=== PATIENT | male | born 1960 | race American Indian/Alaskan Native ===

== ENCOUNTER 2016-10-06 03:33 | Emergency (ER) | payer MEDICARE ==
[2016-10-06 10:46] LABS: ISTAT Base Excess -4; ISTAT HCO3 22.1; ISTAT PCO2 42.3 (35-45); ISTAT PH 7.326 (7.35-7.45); ISTAT PO2 67 (80-105); ISTAT SO2 92; ISTAT TCO2 23
[2016-10-06] MEDS ORDERED: ZESTRIL ONE (10:49)
[2016-10-06] MEDS ORDERED: BABY ASPIRIN ONE (11:34)
[2016-10-06] MEDS ORDERED: COREG ONE (12:05)
[2016-10-06] MEDS ORDERED: HEPARIN ONE (12:11)
[2016-10-06 13:51] VITALS: BP 134/85
--- NOTE | 2016-10-06 16:24 | XRay Report ---
AP CHEST: AP view of the chest demonstrates a normal mediastinal and cardiac contour with clear lungs and normal bony and soft tissue structures. IMPRESSION: Normal AP chest.
--- NOTE | 2016-10-06 19:55 | History and Physical Report ---
History of Present Illness Date of examination: 10/06/16 Date of admission: 10/06/16 Chief complaint: shortness of breath History of present illness: patient is a 56 year old male with past medical hx of CAD, CHF EF unknown, copd , Dm, htn, hyperlipidemia, PUD, who presented to the ER with complaints of shortness of breath, the patient states he was recently discharged from the [facility] where he was treated for COPD exacerbation and given steriods and antibiotics. He states that he did not fill the prescriptions for the steriods and begain have shortness of breath for the past 2 days and has progressively gotten worse with associated none productive cough. He denies any chest pain, nausea or vomiting. He denies any fever. He continues to smoke. He denies home oxygen use. He is accompanied by his . Medications: LISINOPRIL, ASPIRIN, COREG, PREDNISONE, METFORMIN, ALBUTEROL Past History Past Medical History: acute SD, CAD, COPD, diabetes, hypertension, hyperlipidemia, other (ulcer) Past Surgical History: No surgical history Social history: smoking, full code. denies: alcohol abuse, prescription drug abuse Family history: no significant family history Medications and Allergies Allergies Allergy/AdvReac Type Severity Reaction Status Date / Time No Known Allergies Allergy Unverified 10/06/16 04:02 Review of Systems Constitutional: no weight loss, no weight gain, no fever, no chills, no sweats Ears, nose, mouth and throat: no decreased hearing, no epistaxis, no mouth pain , no swelling in mouth Cardiovascular: edema, dyspnea on exertion, high blood pressure, no chest pain, no orthopnea, no palpitations, no syncope Respiratory: cough, shortness of breath, dyspnea on exertion, congestion, wheezing, no respiratory infections, no home oxygen Gastrointestinal: no abdominal pain, no nausea, no vomiting Genitourinary Male: no dysuria, no hematuria Musculoskeletal: no neck stiffness, no neck pain, no shooting arm pain, no arm numbness/tingling, no shooting leg pain, no leg numbness/tingling Integumentary: no deferred, no pruritis, no redness, no sores, no lesions Neurological: no paralysis, no weakness, no parathesias, no numbness, no change in mentation Psychiatric: no anxiety, no memory loss, no change in sleep habits, no sleep disturbances Endocrine: no cold intolerance, no heat intolerance, no polyphagia Hematologic/Lymphatic: no easy bruising Allergic/Immunologic: no urticaria Exam - Constitutional Vitals: Temp Pulse Resp BP Pulse Ox 97.8 F 102 H 19 134/85 93 10/06/16 03:56 10/06/16 13:41 10/06/16 13:41 10/06/16 13:41 10/06/16 13:41 General appearance: Present: mild distress, well-nourished - EENT Eyes: Present: PERRL, EOM intact ENT: hearing intact, other (missing dentition) - Neck Neck: Present: supple, normal ROM - Respiratory Respiratory: bilateral: wheezing - Cardiovascular Rhythm: regular Heart Sounds: Present: S1 & S2. Absent: systolic murmur, diastolic murmur - Extremities Extremities: no ischemia Extremity abnormal: pulses diminished (lower ext. DP, PD 1+) - Abdominal General gastrointestinal: Present: soft, non-tender, non-distended, normal bowel sounds Male genitourinary: Present: deferred - Rectal Rectal Exam: deferred - Integumentary Integumentary: Present: clear, dry - Musculoskeletal Musculoskeletal: strength equal bilaterally - Psychiatric Psychiatric: appropriate mood/affect, cooperative - Neurologic Neurologic: CNII-XII intact, moves all extremities - Allied Health Allied health notes reviewed: nursing Results - Labs Labs: Laboratory Last Values POC ABG pH 7.326 (7.35-7.45) L 10/06/16 05:21 POC ABG pCO2 42.3 (35-45) 10/06/16 05:21 POC ABG pO2 67 (80-105) L 10/06/16 05:21 POC ABG HCO3 22.1 10/06/16 05:21 POC ABG Total CO2 23 10/06/16 05:21 POC ABG O2 Sat 92 10/06/16 05:21 POC ABG Base Excess -4 10/06/16 05:21 FiO2 28 % 10/06/16 05:21 POC Glucose 191 (70-105) H 10/06/16 10:40 Assessment and Plan Assessment and plan: patient is a 56 year old male with past medical hx of CAD, CHF EF unknown, copd , Dm, htn, hyperlipidemia, PUD, who presented to the ER with complaints of shortness of breath, the patient states he was recently discharged from the [facility] where he was treated for COPD exacerbation and given steriods and antibiotics. He states that he did not fill the prescriptions for the steroids and begain have shortness of breath for the past 2 days and has progressively gotten worse with associated none productive cough. He denies any chest pain, nausea or vomiting. He denies any fever. He continues to smoke. He denies home oxygen use. He is accompanied by his * Acute Respiratory failure with hypoxia * COPD Exacerbation * DM * HTN * Hyperlipidemia * PUD * CHF Presumed diastolic Plan * Admit to telemetry * IV corticosteriods q8hrs * Duonebs * Resume home meds * Accucheck ACHS * DVT/GI Propylaxis Advance Directives: Yes Plan of care discussed with patient/family: Yes
--- NOTE | 2016-10-06 20:41 | Event Note ---
Date: 10/06/16 I was called and informed by nursing staff that the patient left against medical advise. He complained in the delay in sending him to a floor since he was admitted. He was still getting all needed treatment in the ER
[2016-10-07] MEDS ORDERED: PEPCID PO SCH (10:00)
== END 2016-10-06 14:15 | disposition left against medical advice (07) ==
LOC: ED 03:33
DX: R06.00 Dyspnea, unspecified (principal); M19.90 Unspecified osteoarthritis, unspecified site; I50.9 Heart failure, unspecified; J44.9 Chronic obstructive pulmonary disease, unspecified; E11.9 Type 2 diabetes mellitus without complications; I10 Essential (primary) hypertension; Z72.0 Tobacco use; Z53.21 Procedure and treatment not carried out due to patient leaving prior to being seen by health care provider
CPT/HCPCS: 71010; 82803; 82962; A9270; J1644; J2920

== ENCOUNTER 2017-09-21 06:33 | Emergency (ER) | payer SELFPAY ==
--- NOTE | 2017-09-21 08:01 | XRay Report ---
FINAL REPORT PROCEDURE: XR CHEST 1V AP TECHNIQUE: Chest radiograph anteroposterior view. CPT 09514 HISTORY: Shortness of breath COMPARISON: None FINDINGS: Heart: Normal. Mediastinum/Vessels: Normal. Lungs/Pleural space: Normal. Bony thorax: No acute osseous abnormality. Life support devices: None. IMPRESSION: No radiographically evident acute cardiopulmonary disease.
[2017-09-21 08:02] LABS: Basophils % (Auto) 0.4 % (0.0-1.8); Eosinophils % (Auto) 0.3 % (0.0-4.3); Hematocrit 44.4 % (35.5-45.6); Hemoglobin 14.9 gm/dl (11.8-15.2); Lymphocytes # (Auto) 0.9 K/mm3 (1.2-5.4); Lymphocytes % (Auto) 8.2 % (13.4-35.0); Mean Corpuscular HGB Conc 34 % (32-34); Mean Corpuscular Hemoglobin 33 pg (28-32); Mean Corpuscular Volume 97 fl (84-94); Monocytes # (Auto) 0.9 K/mm3 (0.0-0.8); Monocytes % (Auto) 8.6 % (0.0-7.3); Platelet Count 221 K/mm3 (140-440); Red Blood Count 4.58 M/mm3 (3.65-5.03); Red Cell Distribution Width 14.7 % (13.2-15.2)
[2017-09-21 08:25] LABS: BUN/Creatinine Ratio 33; Blood Urea Nitrogen 23 mg/dL (9-20); Calcium 9.2 mg/dL (8.4-10.2); Hemolysis Index 9
[2017-09-21] MEDS ORDERED: MAGNESIUM SULFATE 2GM/50ML 2 GM/50 ML BAG IV ONE (09:19)
[2017-09-21] MEDS ORDERED: ROBITUSSIN PO ONE (09:19)
[2017-09-21] MEDS ORDERED: PROVENTIL IH ONE ×2 (09:19→10:50)
[2017-09-21] MEDS ORDERED: ATROVENT IH ONE ×2 (09:19→10:50)
--- NOTE | 2017-09-21 09:33 | Emergency Department Report ---
HPI - General Chief Complaint: Dyspnea/Respdistress Time Seen by Provider: 09/21/17 09:10 - HPI HPI: Room 6 The patient is a 57-year-old male presenting with a chief complaint of shortness of breath and congestion. The patient states last week he was diagnosed with influenza and was hospitalized at the [facility]. The patient states he was discharged 09/16/2017. The patient states following day began developing shortness of breath and chest congestion which has been worsening. Patient was a subjective fever. Patient denies pain of any type. Patient denies nausea/ vomiting. The patient states he tried his nebulizer at home but it did not help. Subsequently EMS was called and the patient was transported to the ED. Patient currently only complains of shortness of breath Location: Lungs Duration: 4 days Quality: Shortness Of breath Severity: Moderate Modifying factors: [see above] Context: [see above] Mode of transportation: [not driving] ED Past Medical Hx - Past Medical History Previous Medical History?: Yes Hx Hypertension: Yes Hx Heart Attack/AMI: Yes Hx Congestive Heart Failure: Yes Hx Diabetes: Yes Hx Arthritis: Yes Hx Asthma: Yes Hx COPD: Yes (2 L home O2) Additional medical history: Stomach ulcer - Surgical History Past Surgical History?: Yes Hx Coronary Stent: Yes (2 stents) Additional Surgical History: cardiac stents - Family History Family history: no significant - Social History Smoking Status: Former Smoker (none 5 months) Substance Use Type: None (denies illicit drug use) - Medications Home Medications: Home Medications Medication Instructions Recorded Confirmed Last Taken Type Furosemide [Lasix TAB] 80 mg PO QDAY 03/30/17 06/24/17 06/22/17 History Aspirin [Adult Low Dose Aspirin EC] 81 mg PO QDAY #30 tablet. 04/02/1706/22/17 Rx AtorvaSTATin [Lipitor] 80 mg PO QDAY #30 tablet 04/02/17 06/24/17 06/22/17 Rx Carvedilol [Coreg] 25 mg PO QDAY #30 tablet 04/02/17 06/24/17 06/22/17 Rx Ipratropium/Albuterol Sulfate 1 ampul IH QIDRT #30 ampul.neb 04/02/17 06/24/17 06/22/17 Rx [DUONEB *Not for PRN Use*] Lisinopril [Zestril TAB] 20 mg PO QDAY #30 tablet 04/02/17 06/24/17 06/22/17 Rx ALBUTEROL Inhaler [ProAir HFA 2 puff IH Q6H PRN #1 pump 05/11/17 06/24/17 Rx Inhaler] metFORMIN [Glucophage] 1,000 mg PO BID #60 tablet 05/11/17 06/24/17 06/22/17 Rx Levofloxacin [Levaquin TAB] 500 mg PO QDAY #5 tablet 06/26/17 Unknown Rx Prednisone [predniSONE 5 mg (6-Day 5 mg PO .TAPER #1 tab.ds.pk 06/26/17 Unknown Rx Pack, 21 Tabs)] glipiZIDE [Glipizide] 5 mg PO DAILY #30 tablet 06/26/17 Unknown Rx Prednisone [predniSONE 10 mg 10 mg PO .TAPER #1 tab.ds.pk 09/21/17 Unknown Rx (6-Day Pack, 21 Tabs)] guaiFENesin [Guaifenesin] 200 mg PO Q4H PRN #200 ml 09/21/17 Unknown Rx ED Review of Systems ROS: Stated complaint: KATHLEEN Other details as noted in HPI Constitutional: fever (subjective) Eyes: denies: eye pain ENT: congestion. denies: throat pain Respiratory: cough, shortness of breath, wheezing Cardiovascular: denies: chest pain Gastrointestinal: denies: abdominal pain Genitourinary: denies: dysuria Musculoskeletal: denies: back pain Neurological: denies: headache Physical Exam - Physical Exam Vital Signs: Vital Signs 09/21/17 09/21/17 09/21/17 07:12 07:18 07:30 Pulse Rate 90 101 H Respiratory 18 17 Rate Blood Pressure 114/76 114/76 112/70 O2 Sat by Pulse 96 Oximetry 09/21/17 09/21/17 09/21/17 07:46 07:57 08:00 Pulse Rate 88 89 Respiratory 17 17 Rate Blood Pressure 114/76 104/73 O2 Sat by Pulse 94 96 97 Oximetry Physical Exam: GENERAL: The patient is well-developed well-nourished male lying on stretcher not appearing to be in acute distress. [] HEENT: Normocephalic. Atraumatic. Extraocular motions are intact. Patient has moist mucous membranes. NECK: Supple. Trachea midline CHEST/LUNGS: Faint expiratory wheezes. There is no respiratory distress noted. HEART/CARDIOVASCULAR: Regular. There is no tachycardia. There is no gallop rub or murmur. ABDOMEN: Abdomen is soft, nontender. Patient has normal bowel sounds. There is no abdominal distention. SKIN: There is no rash. There is no edema. There is no diaphoresis. NEURO: The patient is awake, alert, and oriented. The patient is cooperative. The patient has normal speech MUSCULOSKELETAL: There is no evidence of acute injury. ED Course Vital Signs 09/21/17 09/21/17 09/21/17 07:12 07:18 07:30 Pulse Rate 90 101 H Respiratory 18 17 Rate Blood Pressure 114/76 114/76 112/70 O2 Sat by Pulse 96 Oximetry 09/21/17 09/21/17 09/21/17 07:46 07:57 08:00 Pulse Rate 88 89 Respiratory 17 18 17 Rate Blood Pressure 114/76 104/73 O2 Sat by Pulse 94 96 97 Oximetry - Reevaluation(s) Reevaluation #1: 09/21/17 12:04 Patient states he feels improved ED Medical Decision Making - Lab Data Result diagrams: 09/21/17 07:00 09/21/17 07:00 Laboratory Tests 09/21/17 09/21/17 07:00 07:00 WBC 10.8 RBC 4.58 Hgb 14.9 Hct 44.4 MCV 97 H MCH 33 H MCHC 34 RDW 14.7 Plt Count 221 Lymph % (Auto) 8.2 L Levy % (Auto) 8.6 H Eos % (Auto) 0.3 Baso % (Auto) 0.4 Lymph # 0.9 L Levy # 0.9 H Eos # 0.0 Baso # 0.0 Seg Neutrophils % 82.5 H Seg Neutrophils # 8.9 H Sodium 140 Potassium 3.8 Chloride 95.2 L Carbon Dioxide 29 Anion Gap 20 BUN 23 H Creatinine 0.7 L Estimated GFR > 60 BUN/Creatinine Ratio 33 Glucose 145 H Calcium 9.2 - EKG Data -: EKG Interpreted by Vt EKG shows normal: sinus rhythm Rate: normal - EKG Data When compared to previous EKG there are: changes noted Interpretation: nonspecific ST-T wave jana (diffuse T-wave inversions (new T- wave inversions in leads 2, 3, aVF)) - Radiology Data Radiology results: image reviewed (chest x-ray) interpreted by me: Chest x-ray-no focal infiltrates, no pneumothorax - Differential Diagnosis influenza, COPD exacerbation Critical care attestation.: If time is entered above; I have spent that time in minutes in the direct care of this critically ill patient, excluding procedure time. ED Disposition Clinical Impression: COPD exacerbation Disposition: DC-01 TO HOME OR SELFCARE Is pt being admited?: No Does the pt Need Aspirin: No Condition: Stable Instructions: Chronic Bronchitis (ED) Additional Instructions: Return to the emergency department immediately should you develop worsening symptoms, fever, inability to tolerate food or liquid or any other concerns. Prescriptions: guaiFENesin [Guaifenesin] 200 mg PO Q4H PRN #200 ml PRN Reason: Cough Prednisone [predniSONE 10 mg (6-Day Pack, 21 Tabs)] 10 mg PO .TAPER #1 tab.ds.pk Referrals: [facility] [Outside] - 3-5 Days Time of Disposition: 12:07
[2017-09-21 13:01] VITALS: BP 111/78
== END 2017-09-21 13:01 | disposition home or self-care (01) ==
LOC: ED 06:33
DX: J44.1 Chronic obstructive pulmonary disease with (acute) exacerbation (principal); I10 Essential (primary) hypertension; I11.0 Hypertensive heart disease with heart failure; I50.9 Heart failure, unspecified; I25.2 Old myocardial infarction; E11.9 Type 2 diabetes mellitus without complications; M19.90 Unspecified osteoarthritis, unspecified site; Z87.891 Personal history of nicotine dependence; Z95.1 Presence of aortocoronary bypass graft; Z79.82 Long term (current) use of aspirin
CPT/HCPCS: 36415; 71045; 80048; 85025; 93005; 93010; 94644; 96365; 96375; 99284; J2930; J3475

== ENCOUNTER 2017-09-23 12:39 | Emergency (ER) | payer SELFPAY ==
[2017-09-23 13:57] VITALS: BP 108/63
--- NOTE | 2017-09-23 14:47 | XRay Report ---
CHEST 2 VIEWS INDICATION: Shortness of breath. COMPARISON: 09/21/2017 FINDINGS: PA and lateral chest radiographs demonstrate normal cardiomediastinal silhouette. Mildly hyperexpanded lungs, again with slightly lucent upper lobes and somewhat crowded markings toward the bases. No pleural effusions or CHF. Intact bones. CONCLUSION: COPD without acute chest process. Please correlate. Thank you for the opportunity to participate in this patient's care.
[2017-09-23 15:39] LABS: Hematocrit 48.7 % (35.5-45.6); Hemoglobin 15.7 gm/dl (11.8-15.2); Mean Corpuscular HGB Conc 32 % (32-34); Mean Corpuscular Hemoglobin 32 pg (28-32); Mean Corpuscular Volume 98 fl (84-94); Platelet Count 330 K/mm3 (140-440); Red Blood Count 4.96 M/mm3 (3.65-5.03)
[2017-09-23 15:58] LABS: BUN/Creatinine Ratio 23; Blood Urea Nitrogen 16 mg/dL (9-20); Calcium 9.8 mg/dL (8.4-10.2); Hemolysis Index 11
[2017-09-23 16:10] LABS: Basophils % (Manual) 0 % (0.0-1.8); Eosinophils % (Manual) 0 % (0.0-4.3); Total Cells Counted 100
[2017-09-23 16:11] LABS: Anisocytosis Few
== END 2017-09-24 04:00 | disposition left against medical advice (07) ==
LOC: ED 12:39
DX: Z53.21 Procedure and treatment not carried out due to patient leaving prior to being seen by health care provider (principal)
CPT/HCPCS: 36415; 71046; 80048; 85007; 85025; 93005; 93010

== ENCOUNTER 2018-03-10 16:10 | Emergency (ER) | payer MEDICARE ==
[2018-03-10] MEDS ORDERED: ATROVENT IH ONE ×2 (16:54→19:22)
[2018-03-10] MEDS ORDERED: PROVENTIL IH ONE ×2 (16:54→19:22)
--- NOTE | 2018-03-10 17:01 | Emergency Department Report ---
HPI - General Time Seen by Provider: 03/10/18 16:49 - HPI HPI: Room 18 The patient is a 57-year-old male presenting with a chief complaint of shortness of breath. The patient states he began developing chest congestion 6 days ago and 5 days ago began developing shortness of breath and wheezing. The patient states the shortness of breath has been worsening since its onset. Patient admits to cough is occasionally productive of clear or light green sputum. Patient missed subjective fever. The patient states his MDI and nebulizer did not help at home. EMS was eventually called and administered nebulizers, Solu-Medrol and magnesium en route and the patient states he is feeling improved. Location: Lungs Duration: 6 days Quality: Shortness of breath Severity: Moderate Modifying factors: [see above] Context: [see above] Mode of transportation: [not driving] ED Past Medical Hx - Past Medical History Hx Hypertension: Yes Hx Heart Attack/AMI: Yes Hx Congestive Heart Failure: Yes Hx Diabetes: Yes Hx Arthritis: Yes Hx Asthma: Yes Hx COPD: Yes (2 L home O2) Additional medical history: Stomach ulcer - Surgical History Hx Coronary Stent: Yes (2 stents) Additional Surgical History: cardiac stents - Family History Family history: no significant - Social History Smoking Status: Former Smoker (none 7 months) Substance Use Type: None (denies illicit drug use) - Medications Home Medications: Home Medications Medication Instructions Recorded Confirmed Last Taken Type Furosemide [Lasix TAB] 80 mg PO QDAY 03/30/17 06/24/17 06/22/17 History Aspirin [Adult Low Dose Aspirin EC] 81 mg PO QDAY #30 tablet. 04/02/1706/22/17 Rx AtorvaSTATin [Lipitor] 80 mg PO QDAY #30 tablet 04/02/17 06/24/17 06/22/17 Rx Carvedilol [Coreg] 25 mg PO QDAY #30 tablet 04/02/17 06/24/17 06/22/17 Rx Ipratropium/Albuterol Sulfate 1 ampul IH QIDRT #30 ampul.neb 04/02/17 06/24/17 06/22/17 Rx [DUONEB *Not for PRN Use*] Lisinopril [Zestril TAB] 20 mg PO QDAY #30 tablet 04/02/17 06/24/17 06/22/17 Rx ALBUTEROL Inhaler [ProAir HFA 2 puff IH Q6H PRN #1 pump 05/11/17 06/24/17 Rx Inhaler] metFORMIN [Glucophage] 1,000 mg PO BID #60 tablet 05/11/17 06/24/17 06/22/17 Rx Levofloxacin [Levaquin TAB] 500 mg PO QDAY #5 tablet 06/26/17 Unknown Rx Prednisone [predniSONE 5 mg (6-Day 5 mg PO .TAPER #1 tab.ds.pk 06/26/17 Unknown Rx Pack, 21 Tabs)] glipiZIDE [Glipizide] 5 mg PO DAILY #30 tablet 06/26/17 Unknown Rx Prednisone [predniSONE 10 mg 10 mg PO .TAPER #1 tab.ds.pk 09/21/17 Unknown Rx (6-Day Pack, 21 Tabs)] guaiFENesin [Guaifenesin] 200 mg PO Q4H PRN #200 ml 09/21/17 Unknown Rx ALBUTEROL Inhaler [Proair] 2 puff IH QID PRN #1 inhalation 03/10/18 Unknown Rx Prednisone [predniSONE 10 mg 10 mg PO .TAPER #1 tab.ds.pk 03/10/18 Unknown Rx (6-Day Pack, 21 Tabs)] guaiFENesin [Tussin Mucus-Chest 200 mg PO TID PRN #200 ml 03/10/18 Unknown Rx Congestion] ED Review of Systems ROS: Stated complaint: KATHLEEN Other details as noted in HPI Constitutional: fever (subjective) Eyes: denies: eye pain ENT: denies: throat pain Respiratory: shortness of breath Cardiovascular: denies: chest pain Endocrine: denies: unexplained weight gain Gastrointestinal: denies: abdominal pain Genitourinary: denies: dysuria Musculoskeletal: denies: back pain Neurological: denies: headache Physical Exam - Physical Exam Vital Signs: Vital Signs 03/10/18 16:47 Temperature 98.6 F Pulse Rate 77 Respiratory 21 Rate Blood Pressure 147/84 [Left] O2 Sat by Pulse 100 Oximetry Physical Exam: GENERAL: The patient is well-developed well-nourished male lying on stretcher not appearing to be in acute distress. [] HEENT: Normocephalic. Atraumatic. Extraocular motions are intact. Patient has moist mucous membranes. NECK: Supple. Trachea midline CHEST/LUNGS: Clear to auscultation. There is no respiratory distress noted. HEART/CARDIOVASCULAR: Regular. There is no tachycardia. There is no gallop rub or murmur. ABDOMEN: Abdomen is soft, nontender. Patient has normal bowel sounds. There is no abdominal distention. SKIN: There is no rash. There is no edema. There is no diaphoresis. NEURO: The patient is awake, alert, and oriented. The patient is cooperative. The patient has normal speech MUSCULOSKELETAL: There is no evidence of acute injury. ED Course Vital Signs 03/10/18 16:47 Temperature 98.6 F Pulse Rate 77 Respiratory 21 Rate Blood Pressure 147/84 [Left] O2 Sat by Pulse 100 Oximetry - Reevaluation(s) Reevaluation #1: 03/10/18 18:49 Patient receiving nebulizer. Reevaluation #2: 03/10/18 19:23 Patient states she is feeling improved but still wheezing. Faint wheezing on auscultation bilaterally. Will give her another neb Reevaluation #3: 03/10/18 20:07 Patient states he is feeling much better. Will reassess after nebulizer is complete Reevaluation #4: 03/10/18 20:47 Patient states he feels much improved and is ready to go home ED Medical Decision Making - EKG Data -: EKG Interpreted by Me EKG shows normal: sinus rhythm Rate: normal - EKG Data When compared to previous EKG there are: previous EKG unavailable Interpretation: other (no ischemic changes seen) - Radiology Data Radiology results: report reviewed (chest x-ray), image reviewed (chest x-ray) interpreted by me: Chest x-ray-no focal infiltrates, no pneumothorax [address] [address] XRay Report Signed Patient: WILL SKELTON MR#: [id number] : 1960 Acct:[id number] Age/Sex: 57 / M ADM Date: 03/10/18 Loc: ED Attending Dr: Ordering Physician: OG VASQUEZ MD Date of Service: 03/10/18 Procedure(s): XR chest 1V ap Accession Number(s): [id number] cc: OG VASQUEZ MD Fluoro Time In Minutes: FINAL REPORT EXAM: XR CHEST 1V AP HISTORY: shortness of breath, productive cough TECHNIQUE: Frontal portable examination of the chest PRIORS: FINDINGS: Atherosclerotic change is present in the thoracic aorta. There is degenerative spondylosis of the thoracic spine. There is no visible pulmonary consolidation, pleural effusion, or pneumothorax. Cardiac silhouette size is normal without vascular congestion. Large lung volumes suggest hyperinflation. This may reflect pulmonary emphysema. IMPRESSION: Large lung volumes may reflect pulmonary emphysema and/or asthma Transcribed By: BAL Dictated By: DOMINICK VALENTINE MD Electronically Authenticated By: DOMINICK VALENTINE MD Signed Date/Time: 03/10/181833 DD/ 33 TD/TT: 03/10/181833 - Differential Diagnosis COPD exacerbation, CHF exacerbation Critical care attestation.: If time is entered above; I have spent that time in minutes in the direct care of this critically ill patient, excluding procedure time. ED Disposition Clinical Impression: COPD exacerbation, Shortness of breath Disposition: - TO HOME OR SELFCARE Is pt being admited?: No Does the pt Need Aspirin: No Condition: Stable Instructions: Chronic Obstructive Pulmonary Disease (ED) Additional Instructions: Return to the emergency department immediately should you develop worsening symptoms, fever, inability to tolerate food or liquid or any other concerns. Prescriptions: ALBUTEROL Inhaler [Proair] 2 puff IH QID PRN #1 inhalation PRN Reason: Shortness Of Breath guaiFENesin [Tussin Mucus-Chest Congestion] 200 mg PO TID PRN #200 ml PRN Reason: Congestion Prednisone [predniSONE 10 mg (6-Day Pack, 21 Tabs)] 10 mg PO .TAPER #1 tab.ds.pk Referrals: PRIMARY CARE, [Primary Care Provider] - 3-5 Days [facility] [Outside] - 3-5 Days Time of Disposition: 20:48
--- NOTE | 2018-03-10 18:39 | XRay Report ---
FINAL REPORT EXAM: XR CHEST 1V AP HISTORY: shortness of breath, productive cough TECHNIQUE: Frontal portable examination of the chest PRIORS: 09/21/2017 FINDINGS: Atherosclerotic change is present in the thoracic aorta. There is degenerative spondylosis of the thoracic spine. There is no visible pulmonary consolidation, pleural effusion, or pneumothorax. Cardiac silhouette size is normal without vascular congestion. Large lung volumes suggest hyperinflation. This may reflect pulmonary emphysema. IMPRESSION: Large lung volumes may reflect pulmonary emphysema and/or asthma
[2018-03-10 21:25] VITALS: BP 136/78
== END 2018-03-10 21:26 | disposition home or self-care (01) ==
LOC: ED 16:10
DX: J44.1 Chronic obstructive pulmonary disease with (acute) exacerbation (principal); I25.2 Old myocardial infarction; I11.0 Hypertensive heart disease with heart failure; I50.9 Heart failure, unspecified; E11.9 Type 2 diabetes mellitus without complications; M19.90 Unspecified osteoarthritis, unspecified site; Z87.891 Personal history of nicotine dependence; Z79.84 Long term (current) use of oral hypoglycemic drugs
CPT/HCPCS: 71045; 93005; 93010; 94640; 94644; 99284

== ENCOUNTER 2018-03-13 08:27 | Inpatient (IN) | payer MEDICARE ==
--- NOTE | 2018-03-13 08:53 | Emergency Department Report ---
ED Shortness of Breath HPI - General Chief Complaint: Dyspnea/Respdistress Stated Complaint: KATHLEEN Time Seen by Provider: 03/13/18 08:43 Source: patient, EMS Mode of arrival: Stretcher Limitations: No Limitations - History of Present Illness Initial Comments: Patient presents to emergency department with increased shortness of breath for the last week. Patient states he was just admitted to the hospital for COPD exacerbation recently. Patient denies any chest pain, dental pain, headache. Per EMS the patient received 5 mg albuterol, 2 g of magnesium, and Solu-Medrol prior to arrival. MD Complaint: shortness of breath -: Gradual Pain Scale: 0 Consistency: constant Improves With: nothing Worsens With: movement Known History Of: COPD Associated Symptoms: denies other symptoms - Related Data Home Oxygen Amount: 2 Liters Home Medications Medication Instructions Recorded Confirmed Last Taken Furosemide [Lasix TAB] 80 mg PO QDAY 03/30/17 06/24/17 06/22/17 Previous Rx's Medication Instructions Recorded Last Taken Type Aspirin [Adult Low Dose Aspirin EC] 81 mg PO QDAY #30 tablet. 04/02/17 Rx AtorvaSTATin [Lipitor] 80 mg PO QDAY #30 tablet 04/02/17 06/22/17 Rx Carvedilol [Coreg] 25 mg PO QDAY #30 tablet 04/02/17 06/22/17 Rx Ipratropium/Albuterol Sulfate 1 ampul IH QIDRT #30 ampul.neb 04/02/17 06/22/17 Rx [DUONEB *Not for PRN Use*] Lisinopril [Zestril TAB] 20 mg PO QDAY #30 tablet 04/02/17 06/22/17 Rx ALBUTEROL Inhaler [ProAir HFA 2 puff IH Q6H PRN #1 pump 05/11/17 06/22/17 Rx Inhaler] metFORMIN [Glucophage] 1,000 mg PO BID #60 tablet 05/11/17 06/22/17 Rx Levofloxacin [Levaquin TAB] 500 mg PO QDAY #5 tablet 06/26/17 Unknown Rx Prednisone [predniSONE 5 mg (6-Day 5 mg PO .TAPER #1 tab.ds.pk 06/26/17 Unknown Rx Pack, 21 Tabs)] glipiZIDE [Glipizide] 5 mg PO DAILY #30 tablet 06/26/17 Unknown Rx Prednisone [predniSONE 10 mg 10 mg PO .TAPER #1 tab.ds.pk 09/21/17 Unknown Rx (6-Day Pack, 21 Tabs)] guaiFENesin [Guaifenesin] 200 mg PO Q4H PRN #200 ml 09/21/17 Unknown Rx ALBUTEROL Inhaler [Proair] 2 puff IH QID PRN #1 inhalation 03/10/18 Unknown Rx Prednisone [predniSONE 10 mg 10 mg PO .TAPER #1 tab.ds.pk 03/10/18 Unknown Rx (6-Day Pack, 21 Tabs)] guaiFENesin [Tussin Mucus-Chest 200 mg PO TID PRN #200 ml 03/10/18 Unknown Rx Congestion] Allergies Allergy/AdvReac Type Severity Reaction Status Date / Time No Known Allergies Allergy Verified 03/13/18 08:54 ED Review of Systems ROS: Stated complaint: KATHLEEN Other details as noted in HPI Constitutional: denies: chills, fever Eyes: denies: eye pain, eye discharge, vision change ENT: denies: ear pain, throat pain Respiratory: shortness of breath. denies: cough, wheezing Cardiovascular: denies: chest pain, palpitations Endocrine: no symptoms reported Gastrointestinal: denies: abdominal pain, nausea, diarrhea Genitourinary: denies: urgency, dysuria Musculoskeletal: denies: back pain, joint swelling, arthralgia Skin: denies: rash, lesions Neurological: denies: headache, weakness, paresthesias Psychiatric: denies: anxiety, depression Hematological/Lymphatic: denies: easy bleeding, easy bruising ED Past Medical Hx - Past Medical History Previous Medical History?: Yes Hx Hypertension: Yes Hx Heart Attack/AMI: Yes (2009) Hx Congestive Heart Failure: Yes Hx Diabetes: Yes Hx GERD: Yes Hx Arthritis: Yes Hx Asthma: Yes Hx COPD: Yes (2 L home O2) Additional medical history: Stomach ulcer - Surgical History Hx Coronary Stent: Yes (3 stents) Additional Surgical History: cardiac stents - Social History Smoking Status: Former Smoker Substance Use Type: None - Medications Home Medications: Home Medications Medication Instructions Recorded Confirmed Last Taken Type Furosemide [Lasix TAB] 80 mg PO QDAY 03/30/17 06/24/17 06/22/17 History Aspirin [Adult Low Dose Aspirin EC] 81 mg PO QDAY #30 tablet. 04/02/1706/22/17 Rx AtorvaSTATin [Lipitor] 80 mg PO QDAY #30 tablet 04/02/17 06/24/17 06/22/17 Rx Carvedilol [Coreg] 25 mg PO QDAY #30 tablet 04/02/17 06/24/17 06/22/17 Rx Ipratropium/Albuterol Sulfate 1 ampul IH QIDRT #30 ampul.neb 04/02/17 06/24/17 06/22/17 Rx [DUONEB *Not for PRN Use*] Lisinopril [Zestril TAB] 20 mg PO QDAY #30 tablet 04/02/17 06/24/17 06/22/17 Rx ALBUTEROL Inhaler [ProAir HFA 2 puff IH Q6H PRN #1 pump 05/11/17 06/24/17 Rx Inhaler] metFORMIN [Glucophage] 1,000 mg PO BID #60 tablet 05/11/17 06/24/17 06/22/17 Rx Levofloxacin [Levaquin TAB] 500 mg PO QDAY #5 tablet 06/26/17 Unknown Rx Prednisone [predniSONE 5 mg (6-Day 5 mg PO .TAPER #1 tab.ds.pk 06/26/17 Unknown Rx Pack, 21 Tabs)] glipiZIDE [Glipizide] 5 mg PO DAILY #30 tablet 06/26/17 Unknown Rx Prednisone [predniSONE 10 mg 10 mg PO .TAPER #1 tab.ds.pk 09/21/17 Unknown Rx (6-Day Pack, 21 Tabs)] guaiFENesin [Guaifenesin] 200 mg PO Q4H PRN #200 ml 09/21/17 Unknown Rx ALBUTEROL Inhaler [Proair] 2 puff IH QID PRN #1 inhalation 03/10/18 Unknown Rx Prednisone [predniSONE 10 mg 10 mg PO .TAPER #1 tab.ds.pk 03/10/18 Unknown Rx (6-Day Pack, 21 Tabs)] guaiFENesin [Tussin Mucus-Chest 200 mg PO TID PRN #200 ml 03/10/18 Unknown Rx Congestion] ED Physical Exam - General Limitations: No Limitations General appearance: alert, in no apparent distress - Head Head exam: Present: atraumatic, normocephalic - Eye Eye exam: Present: normal appearance, PERRL, EOMI - ENT ENT exam: Present: mucous membranes moist - Neck Neck exam: Present: normal inspection - Respiratory Respiratory exam: Present: respiratory distress, wheezes, other (patient is in mild respiratory distress using accessory muscles to breathe). Absent: rales, rhonchi - Cardiovascular Cardiovascular Exam: Present: regular rate, normal rhythm. Absent: systolic murmur, diastolic murmur, rubs, gallop - GI/Abdominal GI/Abdominal exam: Present: soft, normal bowel sounds. Absent: distended, tenderness - Rectal Rectal exam: Present: deferred - Extremities Exam Extremities exam: Present: normal inspection - Back Exam Back exam: Present: normal inspection - Neurological Exam Neurological exam: Present: alert, oriented X3, CN II-XII intact. Absent: motor sensory deficit - Psychiatric Psychiatric exam: Present: normal affect, normal mood - Skin Skin exam: Present: warm, dry, intact, normal color. Absent: rash ED Course Vital Signs 03/13/18 03/13/18 08:35 08:52 Temperature 97.8 F Pulse Rate 78 70 Respiratory 22 20 Rate Blood Pressure 112/84 O2 Sat by Pulse 99 Oximetry ED Medical Decision Making - Lab Data Result diagrams: 03/13/18 08:59 03/13/18 08:54 - Medical Decision Making Abdomen the patient received a continuous breathing treatment he stated that he was not feeling better like to be admitted. Critical care attestation.: If time is entered above; I have spent that time in minutes in the direct care of this critically ill patient, excluding procedure time. ED Disposition Clinical Impression: COPD exacerbation Disposition: OP ADMIT IP TO THIS HOSP Is pt being admited?: Yes Does the pt Need Aspirin: No Condition: Fair Instructions: Chronic Bronchitis (ED) Referrals: PRIMARY CARE, [Primary Care Provider] - 3-5 Days Time of Disposition: 12:45
--- NOTE | 2018-03-13 09:07 | XRay Report ---
Portable chest: Dyspnea. The lungs do appear slightly hyperinflated but clear of any infiltrate or nodule. The heart is normal in size. There is no vascular congestion. No interval change is identified when compared to recent examination of March 10, 2018. Impression: Hyperinflation. No acute finding.
[2018-03-13 09:21] LABS: Basophils % (Auto) 0.3 % (0.0-1.8); Eosinophils % (Auto) 0.6 % (0.0-4.3); Hematocrit 44.6 % (35.5-45.6); Hemoglobin 14.6 gm/dl (11.8-15.2); Lymphocytes # (Auto) 2.1 K/mm3 (1.2-5.4); Lymphocytes % (Auto) 32.4 % (13.4-35.0); Mean Corpuscular HGB Conc 33 % (32-34); Mean Corpuscular Hemoglobin 31 pg (28-32); Mean Corpuscular Volume 96 fl (84-94); Monocytes # (Auto) 0.6 K/mm3 (0.0-0.8); Monocytes % (Auto) 8.7 % (0.0-7.3); Platelet Count 221 K/mm3 (140-440); Red Blood Count 4.67 M/mm3 (3.65-5.03)
[2018-03-13 09:45] LABS: Alanine Aminotransferase 29 units/L (7-56); Albumin 3.8 g/dL (3.9-5); BUN/Creatinine Ratio 16; Blood Urea Nitrogen 11 mg/dL (9-20); Calcium 9.2 mg/dL (8.4-10.2); Hemolysis Index 19
[2018-03-13] MEDS ORDERED: ATROVENT IH ONE ×2 (09:57→09:58)
[2018-03-13] MEDS ORDERED: PROVENTIL IH ONE ×2 (09:57→09:58)
[2018-03-13] MEDS ORDERED: LEVAQUIN 750MG/150ML 750 MG/150 ML BAG IV ONE ×2 (13:55→14:26)
--- NOTE | 2018-03-13 20:21 | History and Physical Report ---
History of Present Illness Date of examination: 03/13/18 Date of admission: 03/13/18 13:01 Chief complaint: Chief complaint: Increasing shortness of breath History of present illness: History of Present Illness: 57-year-old male with history of severe nicotine dependence , COPD , hypertension and insulin-dependent diabetes comes in for increasing shortness of breath for one week. Cough productive of mucoid sputum . Sometimes yellowish. No fever or chills. Recently discharged after being treated for COPD exacerbation and respiratory failure. Smoking is exacerbated in factor. Relieving factor is not smoking. Past Medical History Hypertension coronary artery disease acute [place] in 2009 Diabetes, GERD, arthritis, asthma, COPD on 2 L of oxygen and peptic ulcer disease Surgical History Coronary Stent: Yes (3 stents) Social History Smoking Status: Former Smoker Substance Use Type: None Family history Htn F Ardell amily history - Medications Home Medications: Home Medications Medication Instructions Recorded Confirmed Last Taken Type Furosemide [Lasix TAB] 80 mg PO QDAY 03/30/17 06/24/17 06/22/17 History Aspirin [Adult Low Dose Aspirin EC] 81 mg PO QDAY #30 tablet. 04/02/1706/22/17 Rx AtorvaSTATin [Lipitor] 80 mg PO QDAY #30 tablet 04/02/17 06/24/17 06/22/17 Rx Carvedilol [Coreg] 25 mg PO QDAY #30 tablet 04/02/17 06/24/17 06/22/17 Rx Ipratropium/Albuterol Sulfate 1 ampul IH QIDRT #30 ampul.neb 04/02/17 06/24/17 06/22/17 Rx [DUONEB *Not for PRN Use*] Lisinopril [Zestril TAB] 20 mg PO QDAY #30 tablet 04/02/17 06/24/17 06/22/17 Rx ALBUTEROL Inhaler [ProAir HFA 2 puff IH Q6H PRN #1 pump 05/11/17 06/24/17 Rx Inhaler] metFORMIN [Glucophage] 1,000 mg PO BID #60 tablet 05/11/17 06/24/17 06/22/17 Rx Levofloxacin [Levaquin TAB] 500 mg PO QDAY #5 tablet 06/26/17 Unknown Rx Prednisone [predniSONE 5 mg (6-Day 5 mg PO .TAPER #1 tab.ds.pk 06/26/17 Unknown Rx Pack, 21 Tabs)] glipiZIDE [Glipizide] 5 mg PO DAILY #30 tablet 06/26/17 Unknown Rx Prednisone [predniSONE 10 mg 10 mg PO .TAPER #1 tab.ds.pk 09/21/17 Unknown Rx (6-Day Pack, 21 Tabs)] guaiFENesin [Guaifenesin] 200 mg PO Q4H PRN #200 ml 09/21/17 Unknown Rx ALBUTEROL Inhaler [Proair] 2 puff IH QID PRN #1 inhalation 03/10/18 Unknown Rx Prednisone [predniSONE 10 mg 10 mg PO .TAPER #1 tab.ds.pk 03/10/18 Unknown Rx (6-Day Pack, 21 Tabs)] guaiFENesin [Tussin Mucus-Chest 200 mg PO TID PRN #200 ml 03/10/18 Unknown Rx Congestion] Review of systems: Stated complaint: KATHLEEN Other details as noted in HPI Constitutional: denies: chills, fever Eyes: denies: eye pain, eye discharge, vision change ENT: denies: ear pain, throat pain Respiratory: shortness of breath. denies: cough, wheezing Cardiovascular: denies: chest pain, palpitations Endocrine: no symptoms reported Gastrointestinal: denies: abdominal pain, nausea, diarrhea Genitourinary: denies: urgency, dysuria Musculoskeletal: denies: back pain, joint swelling, arthralgia Skin: denies: rash, lesions Neurological: denies: headache, weakness, paresthesias Psychiatric: denies: anxiety, depression Hematological/Lymphatic: denies: easy bleeding, easy bruising Medications and Allergies Allergies Allergy/AdvReac Type Severity Reaction Status Date / Time No Known Allergies Allergy Verified 03/13/18 08:54 Home Medications Medication Instructions Recorded Confirmed Last Taken Type Aspirin [Adult Low Dose Aspirin EC] 81 mg PO QDAY #30 tablet. 04/02/1706/22/17 Rx ALBUTEROL Inhaler [Proair] 2 puff IH QID PRN #1 inhalation 03/10/18 03/13/18 Unknown Rx ALBUTEROL NEB's [Proventil] 1 neb IH QID PRN 03/13/18 03/13/18 Unknown History Acetaminophen [Tylenol] 1,000 mg PO TID PRN 03/13/18 03/13/18 Unknown History Atorvastatin Calcium [Lipitor] 80 mg PO QDAY 03/13/18 03/13/18 Unknown History Benzonatate [Tessalon Perle] 100 mg PO Q8H PRN 03/13/18 03/13/18 Unknown History Budesoni/Formotero 160-4.5(Nf) 2 puff IH BID 03/13/18 03/13/18 Unknown History [Symbicort 160-4.5 (Nf)] Calcium Carbonate/Vitamin D3 1 each PO BID 03/13/18 03/13/18 Unknown History [Calcium 250-Vit D3 125 Tablet] Carvedilol [Coreg] 25 mg PO BID 03/13/18 03/13/18 Unknown History Cholecalciferol (Vitamin D3) 2,000 unit PO DAILY 03/13/18 03/13/18 Unknown History [Vitamin D3] Lisinopril [Zestril TAB] 20 mg PO QDAY 03/13/18 03/13/18 Unknown History Ranitidine HCl [Zantac 150 MG TAB] 150 mg PO BID 03/13/18 03/13/18 Unknown History Tiotropium Logan [Spiriva 2 puff IH QDAY 03/13/18 03/13/18 Unknown History Respimat] glipiZIDE [Glipizide] 7.5 mg PO BID 03/13/18 03/13/18 Unknown History guaiFENesin [Tussin Mucus-Chest 5 ml PO Q4H PRN 03/13/18 03/13/18 Unknown History Congestion] metFORMIN [Glucophage] 1,000 mg PO BIDDIAB 03/13/18 03/13/18 Unknown History Exam - Physical Exam Narrative exam: In respiratory distress - Constitutional Vitals: Temp Pulse Resp BP Pulse Ox 97.9 F 73 20 147/82 92 03/13/18 16:42 03/13/18 16:42 03/13/18 16:42 03/13/18 16:42 03/13/18 16:42 General appearance: Present: no acute distress, mild distress, well-nourished - EENT Eyes: Present: PERRL ENT: hearing intact, clear oral mucosa - Neck Neck: Present: supple, normal ROM - Respiratory Respiratory effort: normal Respiratory: bilateral: diminished, rhonchi - Cardiovascular Heart rate: 80 Rhythm: regular Heart Sounds: Present: S1 & S2. Absent: rub, click - Extremities Extremities: no ischemia, pulses intact, pulses symmetrical, No edema Peripheral Pulses: within normal limits - Abdominal General gastrointestinal: Present: soft, non-tender, non-distended, normal bowel sounds Male genitourinary: Present: normal - Rectal Rectal Exam: deferred - Integumentary Integumentary: Present: clear, warm, dry - Musculoskeletal Musculoskeletal: gait normal, strength equal bilaterally - Psychiatric Psychiatric: appropriate mood/affect, intact judgment & insight - Neurologic Neurologic: CNII-XII intact, moves all extremities - Allied Health Allied health notes reviewed: nursing, case management Results - Labs CBC & Chem 7: 03/13/18 08:59 03/13/18 08:54 Labs: Laboratory Last Values WBC 6.4 K/mm3 (4.5-11.0) 03/13/18 08:59 RBC 4.67 M/mm3 (3.65-5.03) 03/13/18 08:59 Hgb 14.6 gm/dl (11.8-15.2) 03/13/18 08:59 Hct 44.6 % (35.5-45.6) 03/13/18 08:59 MCV 96 fl (84-94) H 03/13/18 08:59 MCH 31 pg (28-32) 03/13/18 08:59 MCHC 33 % (32-34) 03/13/18 08:59 RDW 16.0 % (13.2-15.2) H 03/13/18 08:59 Plt Count 221 K/mm3 (140-440) 03/13/18 08:59 Lymph % (Auto) 32.4 % (13.4-35.0) 03/13/18 08:59 Dewitt % (Auto) 8.7 % (0.0-7.3) H 03/13/18 08:59 Eos % (Auto) 0.6 % (0.0-4.3) 03/13/18 08:59 Baso % (Auto) 0.3 % (0.0-1.8) 03/13/18 08:59 Lymph # 2.1 K/mm3 (1.2-5.4) 03/13/18 08:59 Dewitt # 0.6 K/mm3 (0.0-0.8) 03/13/18 08:59 Eos # 0.0 K/mm3 (0.0-0.4) 03/13/18 08:59 Baso # 0.0 K/mm3 (0.0-0.1) 03/13/18 08:59 Seg Neutrophils % 58.0 % (40.0-70.0) 03/13/18 08:59 Seg Neutrophils # 3.7 K/mm3 (1.8-7.7) 03/13/18 08:59 POC ABG pH 7.351 (7.35-7.45) 03/13/18 12:48 POC ABG pCO2 50.9 (35-45) H 03/13/18 12:48 POC ABG pO2 97 (80-105) 03/13/18 12:48 POC ABG HCO3 28.2 03/13/18 12:48 POC ABG Total CO2 30 03/13/18 12:48 POC ABG O2 Sat 97 03/13/18 12:48 POC ABG Base Excess 3 03/13/18 12:48 FiO2 32 % 03/13/18 12:48 Sodium 139 mmol/L (137-145) 03/13/18 08:54 Potassium 3.7 mmol/L (3.6-5.0) 03/13/18 08:54 Chloride 100.3 mmol/L (98-107) 03/13/18 08:54 Carbon Dioxide 27 mmol/L (22-30) 03/13/18 08:54 Anion Gap 15 mmol/L 03/13/18 08:54 BUN 11 mg/dL (9-20) 03/13/18 08:54 Creatinine 0.7 mg/dL (0.8-1.5) L 03/13/18 08:54 Estimated GFR > 60 ml/min 03/13/18 08:54 BUN/Creatinine Ratio 16 % 03/13/18 08:54 Glucose 72 mg/dL (75-100) L 03/13/18 08:54 Calcium 9.2 mg/dL (8.4-10.2) 03/13/18 08:54 Total Bilirubin 0.30 mg/dL (0.1-1.2) 03/13/18 08:54 AST 22 units/L (5-40) 03/13/18 08:54 ALT 29 units/L (7-56) 03/13/18 08:54 Alkaline Phosphatase 80 units/L (35-129) 03/13/18 08:54 NT-Pro-B Natriuret Pep 308.0 pg/mL (0-900) 03/13/18 08:54 Total Protein 6.7 g/dL (6.3-8.2) 03/13/18 08:54 Albumin 3.8 g/dL (3.9-5) L 03/13/18 08:54 Albumin/Globulin Ratio 1.3 % 03/13/18 08:54 - Imaging and Cardiology EKG: report reviewed Imaging and Cardiology: Chest x-ray The lungs do appear slightly hyperinflated but clear of any infiltrate or nodule. The heart is normal in size. There is no vascular congestion. No interval change is identified when compared to recent examination of March 10, 2018. Impression: Hyperinflation. No acute finding. Assessment and Plan Advance Directives: Yes (full code) VTE prophylaxis?: Chemical Plan of care discussed with patient/family: Yes - Patient Problems (1) Acute respiratory failure with hypoxia Current Visit: No Status: Acute Plan to address problem: Patient has acute respiratory failure with hypercarbia and hypoxia IV Solu-Medrol and DuoNeb's and IV Levaquin. BiPAP if necessary Intubation if necessary (2) COPD exacerbation Current Visit: Yes Status: Acute Plan to address problem: IV Solu-Medrol IV Levaquin and Duonebs . (3) T2DM (type 2 diabetes mellitus) Current Visit: Yes Status: Chronic Qualifiers: Diabetes mellitus penitentiary insulin use: without penitentiary use Plan to address problem: Continue oral hypoglycemics Coverage With insulin Check hemoglobin A1c (4) Hypertension Current Visit: Yes Status: Chronic Qualifiers: Hypertension type: essential hypertension Qualified Code(s): I10 - Essential (primary) hypertension Plan to address problem: continue antihypertensives (5) Vitamin D deficiency Current Visit: Yes Status: Chronic Plan to address problem: continue vitamin D (6) Hyperlipidemia Current Visit: Yes Status: Chronic Qualifiers: Hyperlipidemia type: mixed hyperlipidemia Qualified Code(s): E78.2 - Mixed hyperlipidemia Plan to address problem: Continue statins (7) Malnutrition Current Visit: Yes Status: Chronic Qualifiers: Protein-calorie malnutrition severity: mild Plan to address problem: initiated on ensure supplements (8) DVT prophylaxis Current Visit: No Status: Acute Plan to address problem: Lovenox 40 mg subcutaneous daily
[2018-03-13] MEDS ORDERED: ROBITUSSIN PO PRN (20:40)
[2018-03-13] MEDS ORDERED: TYLENOL PO PRN ×2 (20:40→20:42)
[2018-03-13] MEDS ORDERED: PROAIR IH PRN (20:40)
[2018-03-13] MEDS ORDERED: TESSALON PERLES PO PRN (20:40)
[2018-03-13] MEDS ORDERED: SODIUM CHLORIDE FLUSH SYRINGE 10 ML IV PRN (20:42)
[2018-03-13] MEDS ORDERED: AMBIEN PO PRN ×2 (20:42→20:48)
[2018-03-13] MEDS ORDERED: ZOFRAN IV PRN (20:42)
[2018-03-13] MEDS ORDERED: PERCOCET 5/325 PO PRN (20:42)
[2018-03-13] MEDS ORDERED: MORPHINE IV PRN (20:42)
[2018-03-13] MEDS ORDERED: NON-FORMULARY (Atorvastatin Calcium [Lipitor] 80 MG) PO SCH (20:45)
[2018-03-13] MEDS ORDERED: DUONEB *Not for PRN Use IH (20:48)
[2018-03-13] MEDS ORDERED: PROVENTIL IH PRN (20:53)
[2018-03-13] MEDS ORDERED: NON-FORMULARY (Budesoni/Formotero 160-4.5(Nf) 2 PUFF) IH SCH (22:00)
[2018-03-13] MEDS ORDERED: NON-FORMULARY (Ranitidine Hcl [Zantac 150 Mg Tab] 150 MG) PO SCH (22:00)
[2018-03-13] MEDS: GLUCOTROL PO SCH (22:35)
[2018-03-13] MEDS: OYSCO D PO SCH (22:39)
[2018-03-13] MEDS: PEPCID PO SCH (22:39)
[2018-03-13] MEDS: COREG PO SCH (22:40)
[2018-03-13] MEDS: LOVENOX SUB-Q SCH (22:41)
[2018-03-13] MEDS: LEVAQUIN 750MG/150ML 750 MG/150 ML BAG IV SCH (22:41)
[2018-03-13] MEDS: SODIUM CHLORIDE FLUSH SYRINGE 10 ML IV SCH (22:42)
[2018-03-13] MEDS: HumaLOG SUB-Q SCH (22:52)
[2018-03-14 06:54] LABS: Hematocrit 42.6 % (35.5-45.6); Hemoglobin 14.4 gm/dl (11.8-15.2); Mean Corpuscular HGB Conc 34 % (32-34); Mean Corpuscular Hemoglobin 32 pg (28-32); Mean Corpuscular Volume 94 fl (84-94); Platelet Count 214 K/mm3 (140-440); Red Blood Count 4.52 M/mm3 (3.65-5.03); Red Cell Distribution Width 15.8 % (13.2-15.2)
[2018-03-14 07:18] LABS: Alanine Aminotransferase 27 units/L (7-56); Albumin 3.9 g/dL (3.9-5); BUN/Creatinine Ratio 20; Blood Urea Nitrogen 12 mg/dL (9-20); Calcium 9.4 mg/dL (8.4-10.2); Hemolysis Index 7
[2018-03-14] MEDS ORDERED: PULMICORT IH SCH (08:00)
[2018-03-14] MEDS: PULMICORT IH SCH ×2 (08:21→20:50)
[2018-03-14] MEDS: DUONEB *Not for PRN Use IH SCH ×4 (08:21→20:50)
[2018-03-14] MEDS: BROVANA NEBU IH SCH ×2 (08:21→20:50)
[2018-03-14 08:39] LABS: Basophils % (Manual) 0 % (0.0-1.8); Eosinophils % (Manual) 0 % (0.0-4.3); Total Cells Counted 100
[2018-03-14 08:41] LABS: Platelet Estimate Cons; RBC Morphology Normal
[2018-03-14] MEDS: PEPCID PO SCH ×2 (09:24→21:59)
[2018-03-14] MEDS: GLUCOPHAGE PO SCH ×2 (09:24→16:46)
[2018-03-14] MEDS: ZESTRIL PO SCH (09:25)
[2018-03-14] MEDS: HALFPRIN EC PO SCH (09:25)
[2018-03-14] MEDS: COREG PO SCH ×2 (09:25→21:58)
[2018-03-14] MEDS: GLUCOTROL PO SCH ×2 (09:25→21:59)
[2018-03-14] MEDS: OYSCO D PO SCH ×2 (09:26→21:59)
[2018-03-14] MEDS: HumaLOG SUB-Q SCH ×3 (09:26→16:39)
[2018-03-14] MEDS: LEVAQUIN 750MG/150ML 750 MG/150 ML BAG IV SCH (09:26)
[2018-03-14] MEDS: SODIUM CHLORIDE FLUSH SYRINGE 10 ML IV SCH ×2 (09:27→22:00)
[2018-03-14] MEDS ORDERED: SPIRIVA IH SCH (10:00)
[2018-03-14] MEDS ORDERED: NON-FORMULARY (Tiotropium Bromide [Spiriva Respimat] 2 PUFF) IH SCH (10:00)
--- NOTE | 2018-03-14 11:41 | Progress Note ---
Assessment and Plan Assessment and plan: Acute respiratory failure with hypoxia Patient has acute respiratory failure with hypercarbia and hypoxia IV Solu-Medrol and DuoNeb's and IV Levaquin. BiPAP if necessary Intubation if necessary COPD exacerbation IV Solu-Medrol IV Levaquin and Duonebs . T2DM (type 2 diabetes mellitus) Continue oral hypoglycemics Coverage With insulin Check hemoglobin A1c Hypertension continue antihypertensives Vitamin D deficiency continue vitamin D Hyperlipidemia Continue statins Malnutrition initiated on ensure supplements DVT prophylaxis Lovenox 40 mg subcutaneous daily History Interval history: feels better, less SOB Hospitalist Physical - Constitutional Vitals: Temp Pulse Resp BP Pulse Ox 97.9 F 62 20 138/70 99 03/14/18 09:04 03/14/18 09:25 03/14/18 09:04 03/14/18 09:25 03/14/18 09:04 General appearance: Present: no acute distress, well-nourished - EENT Eyes: Present: PERRL, EOM intact ENT: hearing intact, clear oral mucosa, dentition normal - Neck Neck: Present: supple, normal ROM - Respiratory Respiratory effort: normal Respiratory: bilateral: CTA - Cardiovascular Rhythm: regular Heart Sounds: Present: S1 & S2. Absent: gallop, rub - Extremities Extremities: no ischemia, No edema, Full ROM - Abdominal General gastrointestinal: soft, non-tender, non-distended, normal bowel sounds - Integumentary Integumentary: Present: clear, warm, dry - Neurologic Neurologic: CNII-XII intact, moves all extremities Results - Labs CBC & Chem 7: 03/14/18 05:51 03/14/18 05:51 Labs: Laboratory Last Values WBC 9.0 K/mm3 (4.5-11.0) 03/14/18 05:51 RBC 4.52 M/mm3 (3.65-5.03) 03/14/18 05:51 Hgb 14.4 gm/dl (11.8-15.2) 03/14/18 05:51 Hct 42.6 % (35.5-45.6) 03/14/18 05:51 MCV 94 fl (84-94) 03/14/18 05:51 MCH 32 pg (28-32) 03/14/18 05:51 MCHC 34 % (32-34) 03/14/18 05:51 RDW 15.8 % (13.2-15.2) H 03/14/18 05:51 Plt Count 214 K/mm3 (140-440) 03/14/18 05:51 Lymph % (Auto) 32.4 % (13.4-35.0) 03/13/18 08:59 [place] % (Auto) 8.7 % (0.0-7.3) H 03/13/18 08:59 Eos % (Auto) 0.6 % (0.0-4.3) 03/13/18 08:59 Baso % (Auto) 0.3 % (0.0-1.8) 03/13/18 08:59 Lymph # 2.1 K/mm3 (1.2-5.4) 03/13/18 08:59 [place] # 0.6 K/mm3 (0.0-0.8) 03/13/18 08:59 Eos # 0.0 K/mm3 (0.0-0.4) 03/13/18 08:59 Baso # 0.0 K/mm3 (0.0-0.1) 03/13/18 08:59 Add Manual Diff Complete 03/14/18 05:51 Total Counted 100 03/14/18 05:51 Seg Neutrophils % Cooler Conveyor Loader 03/14/18 05:51 Seg Neuts % (Manual) 91.0 % (40.0-70.0) H 03/14/18 05:51 Band Neutrophils % 0 % 03/14/18 05:51 Lymphocytes % (Manual) 5.0 % (13.4-35.0) L 03/14/18 05:51 Reactive Lymphs % (Man) 0 % 03/14/18 05:51 Monocytes % (Manual) 4.0 % (0.0-7.3) 03/14/18 05:51 Eosinophils % (Manual) 0 % (0.0-4.3) 03/14/18 05:51 Basophils % (Manual) 0 % (0.0-1.8) 03/14/18 05:51 Metamyelocytes % 0 % 03/14/18 05:51 Myelocytes % 0 % 03/14/18 05:51 Promyelocytes % 0 % 03/14/18 05:51 Blast Cells % 0 % 03/14/18 05:51 Nucleated RBC % Not Reportable 03/14/18 05:51 Seg Neutrophils # 3.7 K/mm3 (1.8-7.7) 03/13/18 08:59 Seg Neutrophils # Man 8.2 K/mm3 (1.8-7.7) H 03/14/18 05:51 Band Neutrophils # 0.0 K/mm3 03/14/18 05:51 Lymphocytes # (Manual) 0.5 K/mm3 (1.2-5.4) L 03/14/18 05:51 Abs React Lymphs (Man) 0.0 K/mm3 03/14/18 05:51 Monocytes # (Manual) 0.4 K/mm3 (0.0-0.8) 03/14/18 05:51 Eosinophils # (Manual) 0.0 K/mm3 (0.0-0.4) 03/14/18 05:51 Basophils # (Manual) 0.0 K/mm3 (0.0-0.1) 03/14/18 05:51 Metamyelocytes # 0.0 K/mm3 03/14/18 05:51 Myelocytes # 0.0 K/mm3 03/14/18 05:51 Promyelocytes # 0.0 K/mm3 03/14/18 05:51 Blast Cells # 0.0 K/mm3 03/14/18 05:51 WBC Morphology Not Reportable 03/14/18 05:51 Hypersegmented Neuts Not Reportable 03/14/18 05:51 Hyposegmented Neuts Not Reportable 03/14/18 05:51 Hypogranular Neuts Not Reportable 03/14/18 05:51 Smudge Cells Not Reportable 03/14/18 05:51 Toxic Granulation Not Reportable 03/14/18 05:51 Toxic Vacuolation Not Reportable 03/14/18 05:51 Dohle Bodies Not Reportable 03/14/18 05:51 Pelger-Huet Anomaly Not Reportable 03/14/18 05:51 Venkat Rods Not Reportable 03/14/18 05:51 Platelet Estimate Cons 03/14/18 05:51 Clumped Platelets Not Reportable 03/14/18 05:51 Plt Clumps, EDTA Not Reportable 03/14/18 05:51 Large Platelets Not Reportable 03/14/18 05:51 Giant Platelets Not Reportable 03/14/18 05:51 Platelet Satelliting Not Reportable 03/14/18 05:51 Plt Morphology Comment Not Reportable 03/14/18 05:51 RBC Morphology Normal 03/14/18 05:51 Dimorphic RBCs Not Reportable 03/14/18 05:51 Polychromasia Not Reportable 03/14/18 05:51 Hypochromasia Not Reportable 03/14/18 05:51 Poikilocytosis Not Reportable 03/14/18 05:51 Anisocytosis Not Reportable 03/14/18 05:51 Microcytosis Not Reportable 03/14/18 05:51 Macrocytosis Not Reportable 03/14/18 05:51 Spherocytes Not Reportable 03/14/18 05:51 Pappenheimer Bodies Not Reportable 03/14/18 05:51 Sickle Cells Not Reportable 03/14/18 05:51 Target Cells Not Reportable 03/14/18 05:51 Tear Drop Cells Not Reportable 03/14/18 05:51 Ovalocytes Not Reportable 03/14/18 05:51 Helmet Cells Not Reportable 03/14/18 05:51 [place] Bodies Not Reportable 03/14/18 05:51 [place] Rings Not Reportable 03/14/18 05:51 [place] Cells Not Reportable 03/14/18 05:51 Bite Cells Not Reportable 03/14/18 05:51 Crenated Cell Not Reportable 03/14/18 05:51 Elliptocytes Not Reportable 03/14/18 05:51 Acanthocytes (Spur) Not Reportable 03/14/18 05:51 Rouleaux Not Reportable 03/14/18 05:51 Hemoglobin C Crystals Not Reportable 03/14/18 05:51 Schistocytes Not Reportable 03/14/18 05:51 Malaria parasites Not Reportable 03/14/18 05:51 Xavier Bodies Not Reportable 03/14/18 05:51 Hem Pathologist Commnt No 03/14/18 05:51 POC ABG pH 7.351 (7.35-7.45) 03/13/18 12:48 POC ABG pCO2 50.9 (35-45) H 03/13/18 12:48 POC ABG pO2 97 (80-105) 03/13/18 12:48 POC ABG HCO3 28.2 03/13/18 12:48 POC ABG Total CO2 30 03/13/18 12:48 POC ABG O2 Sat 97 03/13/18 12:48 POC ABG Base Excess 3 03/13/18 12:48 FiO2 32 % 03/13/18 12:48 Sodium 133 mmol/L (137-145) L 03/14/18 05:51 Potassium 4.5 mmol/L (3.6-5.0) D 03/14/18 05:51 Chloride 94.6 mmol/L (98-107) L 03/14/18 05:51 Carbon Dioxide 27 mmol/L (22-30) 03/14/18 05:51 Anion Gap 16 mmol/L 03/14/18 05:51 BUN 12 mg/dL (9-20) 03/14/18 05:51 Creatinine 0.6 mg/dL (0.8-1.5) L 03/14/18 05:51 Estimated GFR > 60 ml/min 03/14/18 05:51 BUN/Creatinine Ratio 20 % 03/14/18 05:51 Glucose 183 mg/dL (75-100) H 03/14/18 05:51 POC Glucose 169 (70-105) H 03/14/18 07:09 Hemoglobin A1c 6.8 % (4-6) H 03/13/18 21:23 Calcium 9.4 mg/dL (8.4-10.2) 03/14/18 05:51 Total Bilirubin 0.20 mg/dL (0.1-1.2) 03/14/18 05:51 AST 14 units/L (5-40) 03/14/18 05:51 ALT 27 units/L (7-56) 03/14/18 05:51 Alkaline Phosphatase 83 units/L (35-129) 03/14/18 05:51 NT-Pro-B Natriuret Pep 308.0 pg/mL (0-900) 03/13/18 08:54 Total Protein 6.8 g/dL (6.3-8.2) 03/14/18 05:51 Albumin 3.9 g/dL (3.9-5) 03/14/18 05:51 Albumin/Globulin Ratio 1.3 % 03/14/18 05:51
--- NOTE | 2018-03-14 18:44 | Consultation ---
History of Present Illness Consult date: 03/14/18 Requesting physician: ANASTACIA SIMONS Reason for consult: COPD, hypoxemia, other History of present illness: 57 YEAR OLD MAN WITH END STAGE copd ON HOME OXYGEN AT 2l/MIN. Recently discharged after admission for COPD with AE. Represents with worsening shortness of breath, cough productive of yellow sputum Admitted with COPD with AE, I have been consulted to assist with care REVIEW OF SYSTEMS Constitutional: denies: chills, fever Eyes: denies: eye pain, eye discharge, vision change ENT: denies: ear pain, throat pain Respiratory: shortness of breath. denies: cough, wheezing Cardiovascular: denies: chest pain, palpitations Endocrine: no symptoms reported Gastrointestinal: denies: abdominal pain, nausea, diarrhea Genitourinary: denies: urgency, dysuria Musculoskeletal: denies: back pain, joint swelling, arthralgia Skin: denies: rash, lesions Neurological: denies: headache, weakness, paresthesias Psychiatric: denies: anxiety, depression Hematological/Lymphatic: denies: easy bleeding, easy bruising Medications and Allergies Allergies Allergy/AdvReac Type Severity Reaction Status Date / Time No Known Allergies Allergy Verified 03/13/18 08:54 Home Medications Medication Instructions Recorded Confirmed Last Taken Type Acetaminophen [Acetaminophen TAB] 1,000 mg PO TID PRN 03/13/18 03/13/18 Unknown History ALBUTEROL Inhaler [ProAir HFA 2 puff IH QID PRN #1 inhalation 03/15/18 Unknown Rx Inhaler] ALBUTEROL NEB's [Proventil 0.083% 1 neb IH QID PRN #30 nebu 03/15/18 Unknown Rx NEBS] Aspirin [Adult Low Dose Aspirin EC] 81 mg PO QDAY #30 tablet. 03/15/18 Unknown Rx Atorvastatin Calcium [Lipitor] 80 mg PO QDAY #60 tablet 03/15/18 Unknown Rx Benzonatate [Tessalon Perle] 100 mg PO Q8H PRN #20 capsule 03/15/18 Unknown Rx Budesoni/Formotero 160-4.5(Nf) 2 puff IH BID #60 inha 03/15/18 Unknown Rx [Symbicort 160-4.5 (Nf)] Calcium Carbonate/Vitamin D3 1 each PO BID #20 tablet 03/15/18 Unknown Rx [Calcium 250-Vit D3 125 Tablet] Carvedilol [Coreg] 25 mg PO BID #60 tablet 03/15/18 Unknown Rx Cholecalciferol (Vitamin D3) 2,000 unit PO DAILY #30 capsule 03/15/18 Unknown Rx [Vitamin D3] Levofloxacin [Levaquin TAB] 500 mg PO QDAY #7 tablet 03/15/18 Unknown Rx Lisinopril [Zestril TAB] 20 mg PO QDAY #30 tablet 03/15/18 Unknown Rx Lispro Insulin [Humalog] 0 unit SUB-Q ACHS units 03/15/18 Unknown Rx Ranitidine HCl [Zantac 150 MG TAB] 150 mg PO BID #30 tablet 03/15/18 Unknown Rx Tiotropium [place] [Spiriva 2 puff IH QDAY #30 mist.inhal 03/15/18 Unknown Rx Respimat] glipiZIDE [Glipizide] 7.5 mg PO BID #60 tablet 03/15/18 Unknown Rx guaiFENesin [Tussin Mucus-Chest 5 ml PO Q4H PRN #60 liquid 03/15/18 Unknown Rx Congestion] metFORMIN [Glucophage] 1,000 mg PO BIDDIAB #60 tablet 03/15/18 Unknown Rx methylPREDNISolone [Medrol] 4 mg PO QAM #1 tab.ds.pk 03/15/18 Unknown Rx Active Meds: Active Medications Acetaminophen (Tylenol) 650 mg PO Q4H PRN PRN Reason: Pain MILD(1-3)/Fever >100.5/COULTER Albuterol (Proventil) 2.5 mg IH Q4HRT PRN PRN Reason: Shortness Of Breath Albuterol/Ipratropium (Duoneb *Not For Prn Use*) 1 ampul IH QIDRT [facility] Last Admin: 03/14/18 16:42 Dose: Not Given Arformoterol Tartrate (Brovana Nebu) 15 mcg IH Q12HRT [facility] Last Admin: 03/14/18 08:21 Dose: 15 mcg Aspirin (Halfprin Ec) 81 mg PO QDAY [facility] Last Admin: 03/14/18 09:25 Dose: 81 mg Atorvastatin Calcium (Lipitor) 80 mg PO QHS [facility] Last Admin: 03/13/18 22:39 Dose: 80 mg Benzonatate (Tessalon Perles) 100 mg PO Q8H PRN PRN Reason: Cough Last Admin: 03/13/18 22:36 Dose: 100 mg Budesonide (Pulmicort) 0.5 mg IH Q12HRT [facility] Last Admin: 03/14/18 08:21 Dose: 0.5 mg Calcium/Vitamin D ([place] D 250 Mg-125 Unit) 1 each PO BID [facility] Last Admin: 03/14/18 09:26 Dose: 1 each Carvedilol (Coreg) 25 mg PO BID [facility] Last Admin: 03/14/18 09:25 Dose: 25 mg Enoxaparin Sodium (Lovenox) 40 mg SUB-Q QDAY@2200 [facility] Last Admin: 03/13/18 22:41 Dose: 40 mg Famotidine (Pepcid) 20 mg PO BID [facility] Last Admin: 03/14/18 09:24 Dose: 20 mg Glipizide (Glucotrol) 7.5 mg PO BID [facility] Last Admin: 03/14/18 09:25 Dose: 7.5 mg Guaifenesin (Robitussin) 100 mg PO Q4H PRN PRN Reason: Cough Levofloxacin/Dextrose (Levaquin 750mg/150ml) 750 mg in 150 mls @ 100 mls/hr IV Q24HR [facility]; Protocol Last Admin: 03/14/18 09:26 Dose: 100 mls/hr Insulin Human Lispro (Humalog) 0 unit SUB-Q ACHS [facility]; Protocol Last Admin: 03/14/18 16:39 Dose: Not Given Lisinopril (Zestril) 20 mg PO QDAY [facility] Last Admin: 03/14/18 09:25 Dose: 20 mg Metformin HCl (Glucophage) 1,000 mg PO BIDDIAB [facility] Last Admin: 03/14/18 16:46 Dose: 1,000 mg Methylprednisolone Sodium Succinate (Solu-Medrol) 40 mg IV Q8HR [facility] Last Admin: 03/14/18 14:33 Dose: 40 mg Morphine Sulfate (Morphine) 2 mg IV Q4H PRN PRN Reason: Pain, Moderate (4-6) Ondansetron HCl (Zofran) 4 mg IV Q8H PRN PRN Reason: Nausea And Vomiting Oxycodone/Acetaminophen (Percocet 5/325) 1 tab PO Q6H PRN PRN Reason: Pain, Moderate (4-6) Sodium Chloride (Sodium Chloride Flush Syringe 10 Ml) 10 ml IV BID [facility] Last Admin: 03/14/18 09:27 Dose: 10 ml Sodium Chloride (Sodium Chloride Flush Syringe 10 Ml) 10 ml IV PRN PRN PRN Reason: LINE FLUSH Zolpidem Tartrate (Ambien) 5 mg PO QHS PRN PRN Reason: Sleep Physical Examination Vital signs: Vital Signs Pulse Ox 100 03/13/18 08:28 Results - Laboratory Findings CBC and BMP: 03/15/18 07:15 03/15/18 07:15 ABG POC ABG pH 7.351 (7.35-7.45) 03/13/18 12:48 POC ABG pCO2 50.9 (35-45) H 03/13/18 12:48 POC ABG pO2 97 (80-105) 03/13/18 12:48 POC ABG HCO3 28.2 03/13/18 12:48 POC ABG Total CO2 30 03/13/18 12:48 POC ABG O2 Sat 97 03/13/18 12:48 Abnormal lab findings: Abnormal Labs 03/13/18 03/13/18 03/13/18 08:54 08:59 12:48 MCV 96 H RDW 16.0 H [place] % (Auto) 8.7 H Seg Neuts % (Manual) Lymphocytes % (Manual) Seg Neutrophils # Man Lymphocytes # (Manual) POC ABG pCO2 50.9 H Sodium Chloride Creatinine 0.7 L Glucose 72 L POC Glucose Hemoglobin A1c Albumin 3.8 L 03/13/18 03/13/18 03/14/18 21:23 22:22 05:51 MCV RDW 15.8 H [place] % (Auto) Seg Neuts % (Manual) 91.0 H Lymphocytes % (Manual) 5.0 L Seg Neutrophils # Man 8.2 H Lymphocytes # (Manual) 0.5 L POC ABG pCO2 Sodium Chloride Creatinine Glucose POC Glucose 169 H Hemoglobin A1c 6.8 H Albumin 03/14/18 03/14/18 03/14/18 05:51 07:09 12:11 MCV RDW [place] % (Auto) Seg Neuts % (Manual) Lymphocytes % (Manual) Seg Neutrophils # Man Lymphocytes # (Manual) POC ABG pCO2 Sodium 133 L Chloride 94.6 L Creatinine 0.6 L Glucose 183 H POC Glucose 169 H 160 H Hemoglobin A1c Albumin 03/14/18 16:39 MCV RDW [place] % (Auto) Seg Neuts % (Manual) Lymphocytes % (Manual) Seg Neutrophils # Man Lymphocytes # (Manual) POC ABG pCO2 Sodium Chloride Creatinine Glucose POC Glucose 125 H Hemoglobin A1c Albumin Assessment and Plan Acute hypoxic/hypercapnic respiratory failure AE-COPD Tobacco abuse disorder/nicotine dependence Hypertension Moderate protein calorie malnutrition Type 2 DM -Antibiotics -Steroids -Bronchodilators VTE prophylaxis Accucheck with glycemic control, keep glucose<180mg/dL -Supplemental oxygen, restrictive oxygen strategy for now -Pulmonary rehab on discharge, gets all his care at the [facility] -Needs evaluation for bronchiectasis -Blood pressure control -Smoking cessation counselling -Influenza and pneumonia vaccination per protocol CC 35 minutes
[2018-03-14] MEDS: PROVENTIL IH SCH (20:53)
[2018-03-14] MEDS: LOVENOX SUB-Q SCH (21:59)
[2018-03-15] MEDS ORDERED: PROVENTIL IH PRN (00:22)
[2018-03-15] MEDS: PROVENTIL IH SCH (00:24)
[2018-03-15] MEDS: HumaLOG SUB-Q SCH ×3 (00:40→12:45)
[2018-03-15 08:15] LABS: Hematocrit 44.7 % (35.5-45.6); Hemoglobin 14.8 gm/dl (11.8-15.2); Lymphocytes # (Auto) 0.9 K/mm3 (1.2-5.4); Lymphocytes % (Auto) 6.6 % (13.4-35.0); Mean Corpuscular HGB Conc 33 % (32-34); Mean Corpuscular Hemoglobin 31 pg (28-32); Mean Corpuscular Volume 95 fl (84-94); Monocytes # (Auto) 0.8 K/mm3 (0.0-0.8); Monocytes % (Auto) 5.8 % (0.0-7.3); Platelet Count 241 K/mm3 (140-440); Red Blood Count 4.72 M/mm3 (3.65-5.03); Red Cell Distribution Width 15.5 % (13.2-15.2)
[2018-03-15 08:23] LABS: BUN/Creatinine Ratio 23; Blood Urea Nitrogen 16 mg/dL (9-20); Calcium 9.8 mg/dL (8.4-10.2); Hemolysis Index 11
--- NOTE | 2018-03-15 08:55 | Discharge Summary ---
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 Cough productive of mucoid sputum . Sometimes yellowish. No fever or chills. Recently discharged after being treated for COPD exacerbation and respiratory failure. The patient was admitted and treated with IV steroids and breathing treatments. Patient is on home oxygen of 2 L. Patient returned to his baseline respiratory status. Dedicated discharge time 32 minutes. Disposition: - TO HOME OR SELFCARE Time spent for discharge: 32 Core Measure Documentation - Palliative Care Palliative Care/ Comfort Measures: Not Applicable - Core Measures Any of the following diagnoses?: none Exam - Constitutional Vitals: Temp Pulse Resp BP Pulse Ox 97.5 F L 68 18 139/84 98 03/15/18 07:39 03/15/18 07:39 03/15/18 07:39 03/15/18 07:39 03/15/18 07:39 General appearance: Present: no acute distress, well-nourished - EENT Eyes: Present: PERRL ENT: hearing intact, clear oral mucosa - Neck Neck: Present: supple, normal ROM - Respiratory Respiratory effort: normal Respiratory: bilateral: CTA - Cardiovascular Heart Sounds: Present: S1 & S2. Absent: rub, click - Extremities Extremities: pulses symmetrical, No edema Peripheral Pulses: within normal limits - Abdominal General gastrointestinal: Present: soft, non-tender, non-distended, normal bowel sounds Male genitourinary: Present: normal - Integumentary Integumentary: Present: clear, warm, dry - Musculoskeletal Musculoskeletal: gait normal, strength equal bilaterally - Psychiatric Psychiatric: appropriate mood/affect, intact judgment & insight - Neurologic Neurologic: CNII-XII intact, moves all extremities Plan Activity: no restrictions Weight Bearing Status: Full Weight Bearing Diet: regular Follow up with: PRIMARY CARE, [Primary Care Provider] - 3-5 Days Prescriptions: ALBUTEROL Inhaler [ProAir HFA Inhaler] 2 puff IH QID PRN #1 inhalation PRN Reason: Shortness Of Breath ALBUTEROL NEB's [Proventil 0.083% NEBS] 1 neb IH QID PRN #30 nebu PRN Reason: Shortness Of Breath Aspirin [Adult Low Dose Aspirin EC] 81 mg PO QDAY #30 tablet.dr Atorvastatin Calcium [Lipitor] 80 mg PO QDAY #60 tablet Benzonatate [Tessalon Perle] 100 mg PO Q8H PRN #20 capsule PRN Reason: Cough Budesoni/Formotero 160-4.5(Nf) [Symbicort 160-4.5 (Nf)] 2 puff IH BID #60 inha Calcium Carbonate/Vitamin D3 [Calcium 250-Vit D3 125 Tablet] 1 each PO BID #20 tablet Carvedilol [Coreg] 25 mg PO BID #60 tablet Cholecalciferol (Vitamin D3) [Vitamin D3] 2,000 unit PO DAILY #30 capsule glipiZIDE [Glipizide] 7.5 mg PO BID #60 tablet guaiFENesin [Tussin Mucus-Chest Congestion] 5 ml PO Q4H PRN #60 liquid PRN Reason: Cough Levofloxacin [Levaquin TAB] 500 mg PO QDAY #7 tablet Lisinopril [Zestril TAB] 20 mg PO QDAY #30 tablet metFORMIN [Glucophage] 1,000 mg PO BIDDIAB #60 tablet methylPREDNISolone [Medrol] 4 mg PO QAM #1 tab.ds.pk Ranitidine HCl [Zantac 150 MG TAB] 150 mg PO BID #30 tablet Tiotropium [place] [Spiriva Respimat] 2 puff IH QDAY #30 mist.inhal
[2018-03-15] MEDS: GLUCOPHAGE PO SCH (09:16)
[2018-03-15] MEDS: BROVANA NEBU IH SCH (09:54)
[2018-03-15] MEDS: PULMICORT IH SCH (09:54)
[2018-03-15] MEDS: DUONEB *Not for PRN Use IH SCH ×3 (09:54→16:10)
[2018-03-15] MEDS: GLUCOTROL PO SCH (10:14)
[2018-03-15] MEDS: COREG PO SCH (10:16)
[2018-03-15] MEDS: PEPCID PO SCH (10:16)
[2018-03-15] MEDS: HALFPRIN EC PO SCH (10:17)
[2018-03-15] MEDS: ZESTRIL PO SCH (10:17)
[2018-03-15] MEDS: LEVAQUIN 750MG/150ML 750 MG/150 ML BAG IV SCH (10:17)
[2018-03-15] MEDS: OYSCO D PO SCH (10:26)
[2018-03-15] MEDS: SODIUM CHLORIDE FLUSH SYRINGE 10 ML IV SCH (10:27)
[2018-03-15 12:19] VITALS: BP 139/86
[2018-03-16] MEDS ORDERED: LEVAQUIN PO SCH (10:00)
== END 2018-03-15 16:15 | disposition home or self-care (01) | DRG 189 ==
LOC: ED 08:27 → 4A 13:01
PROVIDERS: ADMIT Internal Medicine; ATTEND Hospitalist
PROC: 4A033R1 Measurement of Arterial Saturation, Peripheral, Percutaneous Approach (ICD-10-PCS; principal; 2018-03-13)
DX: J96.01 Acute respiratory failure with hypoxia (principal); J44.1 Chronic obstructive pulmonary disease with (acute) exacerbation; E44.0 Moderate protein-calorie malnutrition; J96.02 Acute respiratory failure with hypercapnia; F17.200 Nicotine dependence, unspecified, uncomplicated; E11.9 Type 2 diabetes mellitus without complications; E55.9 Vitamin D deficiency, unspecified; E78.5 Hyperlipidemia, unspecified; K21.9 Gastro-esophageal reflux disease without esophagitis; M19.90 Unspecified osteoarthritis, unspecified site; I11.0 Hypertensive heart disease with heart failure; I50.9 Heart failure, unspecified; I25.10 Atherosclerotic heart disease of native coronary artery without angina pectoris; I25.2 Old myocardial infarction; Z87.11 Personal history of peptic ulcer disease; Z95.5 Presence of coronary angioplasty implant and graft; Z79.4 Long term (current) use of insulin; Z79.899 Other long term (current) drug therapy; Z68.24 Body mass index [BMI] 24.0-24.9, adult; Z79.82 Long term (current) use of aspirin
CPT/HCPCS: 36415; 71045; 80048; 80053; 82803; 82962; 83036; 83880; 85007; 85025; 87040; 94640; 94760; A9270-GY; J1650; J1815; J1956; J2920; J2930

== ENCOUNTER 2018-04-22 22:24 | Emergency (ER) | payer SELFPAY ==
[2018-04-22] MEDS ORDERED: PROVENTIL IH ONE ×2 (22:32→23:50)
[2018-04-22] MEDS ORDERED: ATROVENT IH ONE ×2 (22:32→23:50)
--- NOTE | 2018-04-22 22:39 | Emergency Department Report ---
HPI - General Time Seen by Provider: 04/22/18 22:27 - HPI HPI: Room 19 The patient is a 57-year-old male presenting with a chief complaint of shortness of breath. The patient states one hour prior to arrival developed shortness of breath consistent with COPD. The patient states she has chronic cough productive of clear sputum. Patient denies fever or pain of any type. Patient was administered albuterol 5 mg, Lasix 40mg, magnesium sulfate 2 g and Solu-Medrol 125 mg prior to arrival. Location: Lungs Duration: One hour Quality: Shortness of breath consistent with COPD Severity: Moderate Modifying factors: [see above] Context: [see above] Mode of transportation: [not driving] ED Past Medical Hx - Past Medical History Hx Hypertension: Yes Hx Heart Attack/AMI: Yes (2009) Hx Congestive Heart Failure: Yes Hx Diabetes: Yes Hx GERD: Yes Hx Arthritis: Yes Hx Asthma: Yes Hx COPD: Yes (2 L home O2) Additional medical history: Stomach ulcer - Surgical History Hx Coronary Stent: Yes (3 stents) Additional Surgical History: cardiac stents - Family History Family history: no significant - Social History Smoking Status: Former Smoker (none 10 months) Substance Use Type: None (denies illicit drug use) - Medications Home Medications: Home Medications Medication Instructions Recorded Confirmed Last Taken Type Acetaminophen [Acetaminophen TAB] 1,000 mg PO TID PRN 03/13/18 03/13/18 Unknown History ALBUTEROL Inhaler [ProAir HFA 2 puff IH QID PRN #1 inhalation 03/15/18 Unknown Rx Inhaler] ALBUTEROL NEB's [Proventil 0.083% 1 neb IH QID PRN #30 nebu 03/15/18 Unknown Rx NEBS] Aspirin [Adult Low Dose Aspirin EC] 81 mg PO QDAY #30 tablet. 03/15/18 Unknown Rx Atorvastatin Calcium [Lipitor] 80 mg PO QDAY #60 tablet 03/15/18 Unknown Rx Benzonatate [Tessalon Perle] 100 mg PO Q8H PRN #20 capsule 03/15/18 Unknown Rx Budesoni/Formotero 160-4.5(Nf) 2 puff IH BID #60 inha 03/15/18 Unknown Rx [Symbicort 160-4.5 (Nf)] Calcium Carbonate/Vitamin D3 1 each PO BID #20 tablet 03/15/18 Unknown Rx [Calcium 250-Vit D3 125 Tablet] Carvedilol [Coreg] 25 mg PO BID #60 tablet 03/15/18 Unknown Rx Cholecalciferol (Vitamin D3) 2,000 unit PO DAILY #30 capsule 03/15/18 Unknown Rx [Vitamin D3] Lisinopril [Zestril TAB] 20 mg PO QDAY #30 tablet 03/15/18 Unknown Rx Lispro Insulin [Humalog] 0 unit SUB-Q ACHS units 03/15/18 Unknown Rx Ranitidine HCl [Zantac 150 MG TAB] 150 mg PO BID #30 tablet 03/15/18 Unknown Rx Tiotropium [place] [Spiriva 2 puff IH QDAY #30 mist.inhal 03/15/18 Unknown Rx Respimat] glipiZIDE [Glipizide] 7.5 mg PO BID #60 tablet 03/15/18 Unknown Rx guaiFENesin [Tussin Mucus-Chest 5 ml PO Q4H PRN #60 liquid 03/15/18 Unknown Rx Congestion] levoFLOXacin [Levaquin TAB] 500 mg PO QDAY #7 tablet 03/15/18 Unknown Rx metFORMIN [Glucophage] 1,000 mg PO BIDDIAB #60 tablet 03/15/18 Unknown Rx methylPREDNISolone [Medrol] 4 mg PO QAM #1 tab.ds.pk 03/15/18 Unknown Rx Prednisone [predniSONE 10 mg 10 mg PO .TAPER #1 tab.ds.pk 04/23/18 Unknown Rx (6-Day Pack, 21 Tabs)] ED Review of Systems ROS: Stated complaint: KATHLEEN Other details as noted in HPI Constitutional: denies: fever Eyes: denies: eye pain ENT: denies: throat pain Respiratory: cough, shortness of breath, wheezing Cardiovascular: denies: chest pain Endocrine: denies: unexplained weight loss Gastrointestinal: denies: abdominal pain Genitourinary: denies: dysuria Musculoskeletal: denies: back pain Skin: denies: change in color Neurological: denies: headache Physical Exam - Physical Exam Physical Exam: GENERAL: The patient is well-developed well-nourished male sitting on stretcher appearing to be in mild discomfort. [] HEENT: Normocephalic. Atraumatic. Extraocular motions are intact. Patient has moist mucous membranes. NECK: Supple. Trachea midline CHEST/LUNGS: Diffuse wheezing. There is no increased work of breathing HEART/CARDIOVASCULAR: Regular. There is no tachycardia. There is no gallop rub or murmur. ABDOMEN: Abdomen is soft, nontender. Patient has normal bowel sounds. There is no abdominal distention. SKIN: There is no rash. There is no edema. There is no diaphoresis. NEURO: The patient is awake, alert, and oriented. The patient is cooperative. The patient has normal speech MUSCULOSKELETAL: There is no evidence of acute injury. ED Course - Reevaluation(s) Reevaluation #2: 04/22/18 23:51 Patient states he feels improved. Faint wheezing still auscultated on the right. Will give another neb Reevaluation #3: 04/23/18 00:40 Patient states he feels much better. Patient states he is ready to go home ED Medical Decision Making - Lab Data Result diagrams: 04/22/18 23:04 04/22/18 23:04 - EKG Data -: EKG Interpreted by Me EKG shows normal: sinus rhythm Rate: normal - EKG Data When compared to previous EKG there are: no significant change Interpretation: unchanged when compared t (03/10/2018) - Radiology Data Radiology results: image reviewed (chest x-ray) interpreted by me: Chest x-ray- no focal infiltrates, no pneumothorax - Differential Diagnosis COPD exacerbation, pneumonia Critical care attestation.: If time is entered above; I have spent that time in minutes in the direct care of this critically ill patient, excluding procedure time. ED Disposition Clinical Impression: COPD exacerbation, Shortness of breath Disposition: DC-01 TO HOME OR SELFCARE Is pt being admited?: No Does the pt Need Aspirin: No Condition: Stable Instructions: Chronic Obstructive Pulmonary Disease (ED) Additional Instructions: Return to the emergency department immediately should you develop worsening symptoms, fever, inability to tolerate food or liquid or any other concerns. Prescriptions: Prednisone [predniSONE 10 mg (6-Day Pack, 21 Tabs)] 10 mg PO .TAPER #1 tab.[id number] Referrals: PRIMARY CARE, [Primary Care Provider] - 3-5 Days Time of Disposition: 00:41
[2018-04-22 23:20] LABS: Basophils % (Auto) 0.2 % (0.0-1.8); Eosinophils % (Auto) 0.5 % (0.0-4.3); Hematocrit 44.5 % (35.5-45.6); Lymphocytes # (Auto) 1.4 K/mm3 (1.2-5.4); Lymphocytes % (Auto) 15.9 % (13.4-35.0); Mean Corpuscular HGB Conc 34 % (32-34); Mean Corpuscular Hemoglobin 32 pg (28-32); Mean Corpuscular Volume 94 fl (84-94); Monocytes # (Auto) 0.7 K/mm3 (0.0-0.8); Monocytes % (Auto) 7.9 % (0.0-7.3); Platelet Count 257 K/mm3 (140-440); Red Blood Count 4.74 M/mm3 (3.65-5.03); Red Cell Distribution Width 16.9 % (13.2-15.2)
--- NOTE | 2018-04-22 23:21 | XRay Report ---
FINAL REPORT PROCEDURE: XR CHEST 1V AP TECHNIQUE: Chest radiograph anteroposterior view. CPT 88432 HISTORY: shortness of breath COMPARISON: 03/10/2018 FINDINGS: Heart: Normal. Mediastinum/Vessels: Normal. Lungs/Pleural space: Normal. Bony thorax: No acute osseous abnormality. Life support devices: None. IMPRESSION: No acute cardiopulmonary abnormality.
[2018-04-22 23:33] LABS: BUN/Creatinine Ratio 17; Blood Urea Nitrogen 12 mg/dL (9-20); Calcium 9.4 mg/dL (8.4-10.2); Hemolysis Index 96
== END 2018-04-23 02:06 | disposition home or self-care (01) ==
LOC: ED 22:24
DX: J44.1 Chronic obstructive pulmonary disease with (acute) exacerbation (principal); I11.0 Hypertensive heart disease with heart failure; I50.9 Heart failure, unspecified; E11.9 Type 2 diabetes mellitus without complications; I25.2 Old myocardial infarction; K21.9 Gastro-esophageal reflux disease without esophagitis; Z87.891 Personal history of nicotine dependence; Z95.818 Presence of other cardiac implants and grafts
CPT/HCPCS: 36415; 71045; 80048; 85025; 93005; 93010; 94640; 94644